=== PATIENT | male | born 1970 | race Asian ===

== ENCOUNTER 2017-11-28 01:49 | Emergency (ER) | payer MEDICARE, MEDICAID ==
[~2017-11-28] VITALS: Ht 165.1 cm; Wt 83.4 kg
[~2017-11-28 01:49] MED LIST: AMOX1TAB64 PO; ATEN-104; CLON0.2T10; DIVA500T2; DIVA500T2 PO; GEMF600T3; HYDR-3237 PO; HYDR12.53; LISI-170 PO; PARO40TA3 PO; RISP4TAB34; ZIPR60CA2 PO; ZIPR80CA3 PO
[2017-11-28 01:50] VITALS: BP 186/139
[2017-11-28] MEDS ORDERED: HYDROcodone/APAP 5/325 TABLET PO STA (02:06)
[2017-11-28] MEDS ORDERED: HYDROcodone/APAP 5/325 TABLET ONE (02:11)
[2017-11-28] MEDS ORDERED: CLINDAMYCIN 300 MG CAPSULE ONE (02:11)
[2017-11-28] MEDS ORDERED: CLINDAMYCIN 300 MG CAPSULE PO ONE (02:30)
== END 2017-11-28 02:56 | disposition home or self-care (01) ==
LOC: ED 02:17
DX: K08.89 Other specified disorders of teeth and supporting structures (principal); I10 Essential (primary) hypertension; F17.210 Nicotine dependence, cigarettes, uncomplicated
CPT/HCPCS: 99283; 99406

== ENCOUNTER 2018-05-21 01:09 | Emergency (ER) | payer MEDICARE, MEDICAID ==
[~2018-05-21] VITALS: Ht 165.1 cm; Wt 85.5 kg
[2018-05-21 01:12] VITALS: BP 141/93
[2018-05-21 02:08] LABS: BASOPHILS # (AUTO) 0.13 x10^3/uL (0-0.1); BASOPHILS % (AUTO) 1 % (0-1); EOSINOPHILS # (AUTO) 0.24 x10^3/uL (0-0.4); EOSINOPHILS % (AUTO) 2 % (1-7); LYMPHOCYTES # (AUTO) 2.75 x10^3/uL (1-3.4); LYMPHOCYTES % (AUTO) 19 % (22-44); MD NO; MEAN CORPUSCULAR HEMOGLOBIN 28.9 pg (27.5-34.5); MEAN CORPUSCULAR VOLUME 85.1 fL (81-97); MEAN PLATELET VOLUME 8.2 fL (7.4-10.4); MONOCYTES % (AUTO) 7 % (2-9); NEUTROPHILS # (AUTO) 10.32 x10^3/uL (1.8-6.8); NEUTROPHILS % (AUTO) 71 % (42-75); PLATELET COUNT 287 x10^3/uL (130-400); RED BLOOD COUNT 5.01 x10^6/uL (4.38-5.82); RED CELL DISTRIBUTION WIDTH 14.3 % (9.4-14.8)
[2018-05-21 02:10] LABS: AMPHETAMINE SCREEN, URINE Positive (Negative); BARBITURATE SCREEN, URINE Negative (Negative); BENZODIAZEPINE SCREEN, URINE Positive (Negative); CANNABINOID SCREEN, URINE Positive (Negative); COCAINE SCREEN, URINE Negative (Negative); METHADONE SCREEN, URINE Negative (Negative); OPIATE SCREEN, URINE Negative (Negative)
[2018-05-21 02:18] LABS: ALANINE AMINOTRANSFERASE 22 U/L (12-78); ALBUMIN 3.3 g/dL (3.4-5.0); ANION GAP 6 mmol/L (5-15); CALCIUM 8.6 mg/dL (8.5-10.1); CHLORIDE 109 mmol/L (98-107); CREATININE 1.29 mg/dL (0.7-1.3); SALICYLATE LEVEL 3.6 mg/dL (2.8-20.0)
[2018-05-21 02:20] LABS: ACETAMINOPHEN < 2 mcg/mL (10-30); ALKALINE PHOSPHATASE 60 U/L (45-117); BILIRUBIN,TOTAL 0.2 mg/dL (0.2-1.0); TOTAL PROTEIN 7.1 g/dL (6.4-8.2)
== END 2018-05-21 04:47 | disposition home or self-care (01) ==
LOC: ED 02:08
DX: F15.20 Other stimulant dependence, uncomplicated (principal); F19.10 Other psychoactive substance abuse, uncomplicated; I10 Essential (primary) hypertension; F31.9 Bipolar disorder, unspecified; F25.9 Schizoaffective disorder, unspecified; Z91.14 Patient's other noncompliance with medication regimen
CPT/HCPCS: 36415; 80053; 80307; 80329; 85025; 99284; G0480